=== PATIENT | female | born 1940 ===

== ENCOUNTER 2021-01-14 22:55 | Emergency (ER) | payer OTHER ==
[~2021-01-14] VITALS: Ht 157.5 cm; Wt 68.0 kg
[2021-01-14] MEDS ORDERED: METFORMIN HCL500 MG (23:22)
[2021-01-14] MEDS ORDERED: COZAAR25 MG (23:22)
[2021-01-14] MEDS ORDERED: HUMULIN N100 UNIT/2 (23:22)
[2021-01-14] MEDS ORDERED: TOPROL XL50 M1 (23:22)
[2021-01-14] MEDS ORDERED: ISOSORBIDE (23:23)
[2021-01-14] MEDS ORDERED: ASA81 MG (23:23)
[2021-01-14] MEDS ORDERED: LEVO-T75 MCG (23:23)
== END 2021-01-15 12:04 | disposition home or self-care (01) ==
LOC: ER 22:55
DX: L03.031 Cellulitis of right toe (principal); B96.29 Other Escherichia coli [E. coli] as the cause of diseases classified elsewhere; B96.89 Other specified bacterial agents as the cause of diseases classified elsewhere